=== PATIENT | female | born 1950 | race Caucasian/White ===

== ENCOUNTER 2016-08-03 15:32 | Emergency (ER) | payer MEDICARE, OTHER ==
[~2016-08-03 15:32] MED LIST: PROTONIX 40 MG40 M1 PO
[2016-08-03 16:36] LABS: HEMOGLOBIN 9.4 gm/dl (12.3-15.3); RED BLOOD COUNT 3.08 M/UL (4.00-5.10)
[2016-08-03 16:48] LABS: WHITE BLOOD COUNT 35.9 K/UL (4.5-11.0)
[2016-09-17] MEDS ORDERED: NORVASC 5 MG TAB5 MG PO (11:15)
[2016-09-17] MEDS ORDERED: DIABETA 5 MG TAB5 MG PO (11:16)
[2016-09-17] MEDS ORDERED: ASPIRIN CHEWABL81 MG PO (11:16)
[2016-09-17] MEDS ORDERED: LORTAB 7.5-3251 EACH PO (11:17)
[2016-09-17] MEDS ORDERED: KEPPRA500 MG PO (11:17)
[2016-09-17] MEDS ORDERED: GLUCOPHAGE500 MG PO (11:17)
[2016-09-17] MEDS ORDERED: OLANZAPINE10 MG PO (11:18)
[2016-09-17] MEDS ORDERED: LOPRESSOR50 MG PO (11:18)
[2016-09-17] MEDS ORDERED: SIMVASTATIN10 MG PO (11:19)
[2016-09-17] MEDS ORDERED: ZOLOFT100 MG PO (11:19)
[2016-09-17] MEDS ORDERED: CEFTIN PO (11:20)
== END 2016-08-03 20:40 | disposition short-term general hospital (02) ==
LOC: ER1 15:32
PROVIDERS: Family Medicine
DX: N20.1 Calculus of ureter (principal); J11.1 Influenza due to unidentified influenza virus with other respiratory manifestations; D64.9 Anemia, unspecified; E11.22 Type 2 diabetes mellitus with diabetic chronic kidney disease; E11.65 Type 2 diabetes mellitus with hyperglycemia; N18.9 Chronic kidney disease, unspecified; Z79.84 Long term (current) use of oral hypoglycemic drugs; Z95.1 Presence of aortocoronary bypass graft; Z88.2 Allergy status to sulfonamides; Z88.8 Allergy status to other drugs, medicaments and biological substances; Z79.82 Long term (current) use of aspirin; Z79.899 Other long term (current) drug therapy
CPT/HCPCS: 36415; 71020; 71250; 80053; 81001; 82550; 82553; 83605; 83874; 84484; 85025; 87040; 87086; 93005; 96372; 96374; 96375; 99291; J1815; J2543; J3370; J7050

== ENCOUNTER 2016-08-30 14:17 | Emergency (ER) | payer MEDICARE, OTHER ==
[2016-09-17] MEDS ORDERED: NORVASC 5 MG TAB5 MG PO (11:15)
[2016-09-17] MEDS ORDERED: ASPIRIN CHEWABL81 MG PO (11:16)
[2016-09-17] MEDS ORDERED: DIABETA 5 MG TAB5 MG PO (11:16)
[2016-09-17] MEDS ORDERED: KEPPRA500 MG PO (11:17)
[2016-09-17] MEDS ORDERED: LORTAB 7.5-3251 EACH PO (11:17)
[2016-09-17] MEDS ORDERED: GLUCOPHAGE500 MG PO (11:17)
[2016-09-17] MEDS ORDERED: OLANZAPINE10 MG PO (11:18)
[2016-09-17] MEDS ORDERED: LOPRESSOR50 MG PO (11:18)
[2016-09-17] MEDS ORDERED: ZOLOFT100 MG PO (11:19)
[2016-09-17] MEDS ORDERED: SIMVASTATIN10 MG PO (11:19)
[2016-09-17] MEDS ORDERED: CEFTIN PO (11:20)
== END 2016-08-30 17:20 | disposition home or self-care (01) ==
LOC: ER1 14:17
DX: S82.832A Other fracture of upper and lower end of left fibula, initial encounter for closed fracture (principal); E11.9 Type 2 diabetes mellitus without complications; Z88.1 Allergy status to other antibiotic agents; Z88.2 Allergy status to sulfonamides; X50.1XXA Overexertion from prolonged static or awkward postures, initial encounter; Y92.009 Unspecified place in unspecified non-institutional (private) residence as the place of occurrence of the external cause; Z79.82 Long term (current) use of aspirin; Z79.84 Long term (current) use of oral hypoglycemic drugs; Z79.899 Other long term (current) drug therapy
CPT/HCPCS: 29515; 73610; 99283

== ENCOUNTER → 2016-09-28 | Outpatient (CLI) | payer MEDICARE, OTHER ==
[~2016-09-28] MED LIST changes: +ASPIRIN CHEWABL81 MG PO; +CEFTIN PO; +DIABETA 5 MG TAB5 MG PO; +GLUCOPHAGE500 MG PO; +KEPPRA500 MG PO; +LOPRESSOR50 MG PO; +LORTAB 7.5-3251 EACH PO; +NORVASC 5 MG TAB5 MG PO; +OLANZAPINE10 MG PO; +SIMVASTATIN10 MG PO; +ZOLOFT100 MG PO
== END ==
LOC: LBRF 22:13
DX: N39.0 Urinary tract infection, site not specified (principal)
CPT/HCPCS: 81001; 87077; 87086; 87186

== ENCOUNTER 2020-08-16 09:49 | Emergency (ER) | payer OTHER ==
[2020-08-16 10:33] LABS: HEMOGLOBIN 9.8 gm/dl (12.3-15.3); RED BLOOD COUNT 3.92 M/UL (4.00-5.10); WHITE BLOOD COUNT 7.2 K/UL (4.5-11.0)
[2020-08-16 11:04] LABS: BUN/CREATININE RATIO 15 (0-10)
[2020-08-16] MEDS ORDERED: MACROBID 100 M100 MG PO (13:40)
== END 2020-08-16 14:40 | disposition home or self-care (01) ==
LOC: ER1 09:49
PROVIDERS: Nurse Practitioner
DX: D64.9 Anemia, unspecified (principal); N39.0 Urinary tract infection, site not specified; E11.649 Type 2 diabetes mellitus with hypoglycemia without coma; I25.2 Old myocardial infarction; E78.5 Hyperlipidemia, unspecified; I10 Essential (primary) hypertension; G40.909 Epilepsy, unspecified, not intractable, without status epilepticus; F17.290 Nicotine dependence, other tobacco product, uncomplicated; Z88.2 Allergy status to sulfonamides; Z79.84 Long term (current) use of oral hypoglycemic drugs; Z79.899 Other long term (current) drug therapy
CPT/HCPCS: 71045; 80053; 81001; 82550; 82553; 82962; 83874; 84484; 85025; 87077; 87086; 87186; 93005; 99284

== ENCOUNTER 2021-07-30 20:51 | Emergency (ER) | payer OTHER ==
[~2021-07-30 20:51] MED LIST changes: +MACROBID 100 M100 MG PO
[2021-07-31 00:11] LABS: HEMOGLOBIN 13.8 gm/dl (12.3-15.3); RED BLOOD COUNT 4.56 M/UL (4.00-5.10)
== END 2021-07-31 01:55 | disposition home or self-care (01) ==
LOC: ER1 20:51
PROVIDERS: Family Medicine
DX: M54.50 Low back pain, unspecified (principal); M25.511 Pain in right shoulder; W01.0XXA Fall on same level from slipping, tripping and stumbling without subsequent striking against object, initial encounter
CPT/HCPCS: 36600; 70450; 71045; 72110; 73030; 73110; 80053; 82803; 83605; 83690; 85025; 87040; 96374; 99284; J2310